=== PATIENT | female | born 1960 | race Caucasian/White ===

== ENCOUNTER 2022-12-17 14:03 | Outpatient (CLI) | payer BC | END 2022-12-17 14:04 | disposition home or self-care (01) | LOC: CSHWCC 14:03 | PROVIDERS: ATTEND Nurse Practitioner Family | DX: T81.89XD Other complications of procedures, not elsewhere classified, subsequent encounter (principal) | CPT/HCPCS: 97607; 99203; G0463 ==

== ENCOUNTER 2022-12-24 08:07 | Outpatient (CLI) | payer BC | END 2022-12-24 08:08 | disposition home or self-care (01) | LOC: CSHWCC 08:07 | PROVIDERS: ATTEND Nurse Practitioner Family | DX: T81.89XD Other complications of procedures, not elsewhere classified, subsequent encounter (principal) | CPT/HCPCS: 97607 ==

== ENCOUNTER 2022-12-31 15:18 | Outpatient (CLI) | payer BC | END 2022-12-31 15:19 | disposition home or self-care (01) | LOC: CSHWCC 15:18 | PROVIDERS: ATTEND Nurse Practitioner Family | DX: T81.89XD Other complications of procedures, not elsewhere classified, subsequent encounter (principal) | CPT/HCPCS: 97602 ==

== ENCOUNTER 2025-01-17 13:33 | Outpatient (CLI) | payer MEDICARE | END 2025-01-17 13:34 | disposition home or self-care (01) | LOC: CSHMAMMO 13:33 | DX: Z12.31 Encounter for screening mammogram for malignant neoplasm of breast (principal) | CPT/HCPCS: 77063; 77067 ==